=== PATIENT | male | born 1965 | race Caucasian/White ===

== ENCOUNTER 2023-05-02 06:41 | Day surgery (SDC) | payer OTHER ==
[~2023-05-02] VITALS: Ht 185.4 cm; Wt 110.7 kg
[2023-05-02] MEDS ORDERED: fentaNYL citrate 0.05 MG/ML VIAL ONE (07:13)
[2023-05-02] MEDS: fentaNYL citrate 0.05 MG/ML VIAL IVP ONE (08:54)
[2023-05-02] MEDS: LIDOCAINE 2% 100 MG/5 ML UJET TP ONE (08:59)
[2023-05-02] MEDS ORDERED: SIMETHICONE 40 MG/0.6 ML ONE (14:32)
== END 2023-05-02 09:50 | disposition home or self-care (01) ==
LOC: MDS 06:41 → MMU 06:42 → MDS 09:50
PROVIDERS: ATTEND Internal Medicine Gastroenterology
DX: Z12.11 Encounter for screening for malignant neoplasm of colon (principal); K63.5 Polyp of colon; I10 Essential (primary) hypertension; E78.00 Pure hypercholesterolemia, unspecified; M19.90 Unspecified osteoarthritis, unspecified site; Z90.49 Acquired absence of other specified parts of digestive tract; Z86.010 Personal history of colon polyps; Z80.1 Family history of malignant neoplasm of trachea, bronchus and lung; Z79.899 Other long term (current) drug therapy; Z98.890 Other specified postprocedural states
CPT/HCPCS: 45385; J3010